=== PATIENT | female | born 2000 | race Caucasian/White ===

== ENCOUNTER 2024-04-25 11:29 | Emergency (ER) | payer BC ==
[~2024-04-25] VITALS: Ht 162.6 cm; Wt 61.6 kg
[2024-04-25 11:46] VITALS: BP 116/69; PULSE 82; RESP 18; TEMP 98.4; O2SAT 98
== END 2024-04-25 14:49 | disposition home or self-care (01) ==
LOC: ER 11:29
DX: S01.81XD Laceration without foreign body of other part of head, subsequent encounter (principal); X58.XXXD Exposure to other specified factors, subsequent encounter
CPT/HCPCS: 99281